=== PATIENT | male | born 1950 | race Caucasian/White ===

== ENCOUNTER 2016-09-30 06:57 | Day surgery (SDC) | payer OTHER ==
[~2016-09-30] VITALS: Ht 177.8 cm; Wt 103.0 kg
[~2016-09-30 06:57] MED LIST: ACYC-114 PO; ALLO100T30 PO; AMLO5TAB4 PO; ATOR20TA PO; DULO20CA45 PO; FLUO5DRO3 PO; LISI-170 PO; POTA10TA11 PO; [UNRECOGNIZED DRUG - OTHER] RIGHTEYE; [UNRECOGNIZED DRUG - OTHER] RIGHTEYE
[2016-09-30] MEDS ORDERED: LACTATED RINGERS 1,000 ML IV SCH (07:47)
[2016-09-30 07:48] VITALS: BP 163/99
[2016-09-30] MEDS ORDERED: LIDOCAINE 1%, 2ML SQ PRN (08:00)
[2016-09-30] MEDS ORDERED: ACETAMINOPHEN 500 MG TABLET ONE (09:27)
[2016-09-30] MEDS ORDERED: ACETAMINOPHEN 500 MG TABLET PO ONE (09:30)
[2016-09-30] MEDS ORDERED: FENTANYL PF 100 MCG/2ML ONE (09:38)
[2016-09-30] MEDS ORDERED: LABETALOL 5MG/ML, 20ML IV PRN (10:00)
[2016-09-30] MEDS ORDERED: ONDANSETRON 2MG/ML, 2ML IVPush PRN (10:00)
[2016-09-30] MEDS ORDERED: PROMETHAZINE 25 MG/ML, 1ML IV PRN (10:00)
[2016-09-30] MEDS ORDERED: hydrALAzine 20 MG/ML, 1ML IV PRN (10:00)
[2016-09-30] MEDS ORDERED: METOCLOPRAMIDE 5 MG/ML, 2ML IV PRN (10:00)
[2016-09-30] MEDS ORDERED: METOPROLOL 1 MG/ML, 5ML IV PRN (10:00)
[2016-09-30] MEDS ORDERED: EPHEDRINE 50 MG/ML, 1ML IVPush PRN (10:00)
[2016-09-30] MEDS ORDERED: OXYcodone 5 MG/5 ML ORAL.SOL UDC PO PRN (10:00)
[2016-09-30] MEDS ORDERED: MIDAZOLAM 1 MG/ML, 2ML IV PRN (10:00)
[2016-09-30] MEDS ORDERED: HYDROmorphone 1 MG/ML, 1ML IV PRN (10:00)
[2016-09-30] MEDS ORDERED: FENTANYL PF 100 MCG/2ML IV PRN (10:00)
[2016-09-30] MEDS ORDERED: OXYcodone 5 MG/5 ML ORAL.SOL UDC ONE (11:06)
[2016-09-30] MEDS ORDERED: ONDANSETRON 2MG/ML, 2ML ONE (16:02)
[2016-09-30] MEDS ORDERED: GLYCOPYRROLATE 0.2MG/1ML ONE (16:02)
[2016-09-30] MEDS ORDERED: PROPOFOL 10 MG/ML, 20ML ONE (16:02)
== END 2016-09-30 12:30 | disposition home or self-care (01) ==
LOC: OUT 06:57
PROVIDERS: ATTEND Urology
DX: N13.1 Hydronephrosis with ureteral stricture, not elsewhere classified (principal); Z46.6 Encounter for fitting and adjustment of urinary device; E11.9 Type 2 diabetes mellitus without complications; I12.9 Hypertensive chronic kidney disease with stage 1 through stage 4 chronic kidney disease, or unspecified chronic kidney disease; N18.9 Chronic kidney disease, unspecified; Z72.89 Other problems related to lifestyle; Z87.442 Personal history of urinary calculi; M19.90 Unspecified osteoarthritis, unspecified site; Z90.49 Acquired absence of other specified parts of digestive tract; Z82.49 Family history of ischemic heart disease and other diseases of the circulatory system; Z80.1 Family history of malignant neoplasm of trachea, bronchus and lung
CPT/HCPCS: 52332; 74000; 76000; 82962; C1769; C2617; J2405; J2704; J3010; J3490; J7120